=== PATIENT | male | born 1995 | race Caucasian/White ===

== ENCOUNTER 2021-11-07 07:55 | Outpatient (CLI) | payer OTHER, SELFPAY ==
--- NOTE | 2021-11-07 08:13 | US_ITS ---
WS: [id number] RIGHT UPPER QUADRANT ULTRASOUND HISTORY: rlq pain COMPARISON: None available. Liver: 14.6 cm in length. Normal size liver. No bile duct dilatation or mass. Portal Vein: Normal hepatopetal flow with monophasic waveform. Gallbladder: Normally distended gallbladder with no stones or wall thickening. CBD: 0.4 cm Pancreas: Normal size and echogenicity. Right kidney: 11.1 cm in length. Normal size and echogenicity. No hydronephrosis or mass. Aorta and IVC: Unremarkable abdominal aorta and IVC. No ascites. Imaging of the RIGHT lower quadrant demonstrates no abnormality. No masses or fluid. US/US abdomen limited [id number] IMPRESSION: Normal RIGHT upper quadrant ultrasound.
== END 2021-11-07 07:56 | disposition home or self-care (01) ==
LOC: RAD 08:08
PROVIDERS: Visit Provider Nurse Practitioner Family
DX: K40.90 Unilateral inguinal hernia, without obstruction or gangrene, not specified as recurrent (principal); R10.31 Right lower quadrant pain
CPT/HCPCS: 76705

== ENCOUNTER 2022-07-12 14:35 | Outpatient (CLI) | payer OTHER, SELFPAY ==
--- NOTE | 2022-07-12 14:46 | XR_ITS ---
WS: [id number] Mandible series, 4 views, 07/12/2022 Clinical Data: injury Comparison: None. Findings: The mandibular ramus and condyles are intact without fracture. The mandibular and maxillary teeth are intact. The temporomandibular joints show no displacement, erosion or fracture. XR/XR mandible min 4V [id number] Impression: Negative mandible series.
== END 2022-07-12 14:36 | disposition home or self-care (01) ==
LOC: RAD 14:36
PROVIDERS: PCP Nurse Practitioner Family; Visit Provider Registered Nurse Neonatal Intensive Care
DX: S09.93XA Unspecified injury of face, initial encounter (principal); X58.XXXA Exposure to other specified factors, initial encounter
CPT/HCPCS: 70110

== ENCOUNTER → 2023-01-10 15:33 | Outpatient (BNVA) | payer BC, SELFPAY | PROVIDERS: PCP Nurse Practitioner Family; Visit Provider Nurse Practitioner Family | DX: R35.0 Frequency of micturition (principal); R50.9 Fever, unspecified | CPT/HCPCS: 81000; 82962; 87426 ==

== ENCOUNTER → 2023-01-17 10:56 | Outpatient (BNVA) | payer BC, SELFPAY | PROVIDERS: PCP Nurse Practitioner Family; Visit Provider Nurse Practitioner Family | DX: R35.0 Frequency of micturition (principal); Z72.51 High risk heterosexual behavior | CPT/HCPCS: 87491; 87591; 87661 ==